=== PATIENT | male | born 1960 | race Two or more races ===

== ENCOUNTER 2019-07-25 17:21 | Emergency (ER) | payer OTHER ==
[~2019-07-25] VITALS: Ht 180.3 cm; Wt 95.3 kg
== END 2019-07-25 19:31 | disposition home or self-care (01) ==
LOC: ER 17:21
DX: K08.89 Other specified disorders of teeth and supporting structures (principal)

== ENCOUNTER 2021-11-03 16:19 | Emergency (ER) | payer OTHER ==
[~2021-11-03] VITALS: Ht 180.3 cm; Wt 88.5 kg
[2021-11-03] MEDS ORDERED: AMOX-CLAV 875-1 EAC1 PO (17:09)
== END 2021-11-03 17:37 | disposition home or self-care (01) ==
LOC: ER 16:19
DX: K04.7 Periapical abscess without sinus (principal); K08.89 Other specified disorders of teeth and supporting structures

== ENCOUNTER → 2024-07-12 07:45 | Outpatient (CLI) | payer OTHER ==
[~2024-07-12 07:45] MED LIST: AMOX-CLAV 875-1 EAC1 PO
[2024-07-12 09:00] LABS: BASO % 0.2 % (0.1-1.2); EOS # 0.11 (0.04-0.54); HEMATOCRIT 44.5 % (40.1-51.0); HEMOGLOBIN 15.1 g/dL (13.7-17.5); LYMPH % 35.2 % (19.3-53.1); MEAN CORPUSCULAR HEMOGLOBIN 27.8 pg (25.6-32.2); MONO # 0.57 (0.24-0.82); MONO % 10.6 % (4.7-12.5); NEUT # 2.79 (1.56-6.13); NEUT % 51.6 % (34.0-71.1); PLATELET COUNT 223 K/uL (163-369); RED BLOOD COUNT 5.44 M/uL (4.63-6.08); RED CELL DISTRIBUTION WIDTH 13.6 % (11.6-14.4)
[2024-07-12 09:22] LABS: PH,URINE 6.5 (5.0-8.0); URINE APPEARANCE Clear; URINE BILIRRUBIN Negative (NEGATIVE); URINE BLOOD Small; URINE COLOR Yellow; URINE GLUCOSE Negative (NEGATIVE); URINE KETONE Negative (NEGATIVE); URINE LEUKOCYTE Negative; URINE NITRATE Negative; URINE PROTEIN Negative (NEGATIVE); URINE UROBILINOGEN 0.2 E.U./dl
[2024-07-12 09:24] LABS: URINE EPITHELIAL CELLS 1.7 uL (0.0-38.8); URINE RBC 25.1 uL (0.0-20.8)
[2024-07-12 09:27] LABS: URINE BACTERIA 1.2 uL (0.0-1933); URINE WBC 0.3 uL (0.0-23.2)
[2024-07-12 09:40] LABS: ALBUMIN 3.8 gm/dL (3.4-5.0); BILIRUBIN TOTAL 0.53 mg/dL (0.3-1.2); CALCIUM 9.3 mg/dL (8.5-10.1); CHOL HDL RATIO 4.6 (0-5.0); CREATININE SERUM 0.9 mg/dL (0.70-1.30); GFR 84.95; GLOBULINA 4.2 G/DL (2.4-3.5); POTASSIUM 4.54 mEq/L (3.5-5.1); PROSTATIC SPECIFIC ANTIGEN 0.668 NG/ML (0.010-4.00)
[2024-07-15 21:12] LABS: chla t Negative (Negative); neiss Negative (Negative)
== END | disposition home or self-care (01) ==
LOC: LAB 07:45
DX: E78.2 Mixed hyperlipidemia (principal); R73.01 Impaired fasting glucose; Z11.3 Encounter for screening for infections with a predominantly sexual mode of transmission; Z11.4 Encounter for screening for human immunodeficiency virus [HIV]; N40.0 Benign prostatic hyperplasia without lower urinary tract symptoms

== ENCOUNTER 2024-08-16 07:34 | Outpatient (CLI) | payer OTHER ==
[2024-08-16 08:55] LABS: URINE APPEARANCE Clear; URINE BILIRRUBIN Negative (NEGATIVE); URINE BLOOD Small; URINE COLOR Yellow; URINE GLUCOSE Negative (NEGATIVE); URINE KETONE Negative (NEGATIVE); URINE LEUKOCYTE Negative; URINE NITRATE Negative; URINE PROTEIN Negative (NEGATIVE); URINE UROBILINOGEN 0.2 E.U./dl
[2024-08-16 09:00] LABS: URINE BACTERIA 4.7 uL (0.0-1933); URINE EPITHELIAL CELLS 1.6 uL (0.0-38.8); URINE RBC 24.0 uL (0.0-20.8)
[2024-08-16 09:07] LABS: URINE CAST 0.14 uL (0.0-1.40); URINE WBC 0.7 uL (0.0-23.2)
[2024-08-16 09:51] LABS: BUN CREA RATIO 9.0 (7.0-25.0); CREATININE SERUM 0.88 mg/dL (0.70-1.30); GFR 87.18; GLUCOSE FASTING 92.0 mg/dL (65-100); OSMOLALITY SERUM 279.0 MOSM/KG (275-295); PROSTATIC SPECIFIC ANTIGEN 0.756 NG/ML (0.010-4.00)
== END 2024-08-16 08:53 | disposition home or self-care (01) ==
LOC: LAB 07:34
PROVIDERS: ATTEND Urology
DX: Z12.5 Encounter for screening for malignant neoplasm of prostate (principal); Z80.42 Family history of malignant neoplasm of prostate; N40.0 Benign prostatic hyperplasia without lower urinary tract symptoms

== ENCOUNTER 2024-09-01 07:39 | Outpatient (CLI) | payer OTHER | END 2024-09-01 07:42 | disposition home or self-care (01) | LOC: SONOGRAMA 07:39 | PROVIDERS: ATTEND Urology | DX: R31.21 Asymptomatic microscopic hematuria (principal) ==

== ENCOUNTER 2024-09-20 07:11 | Outpatient (CLI) | payer OTHER ==
[2024-09-20 07:52] LABS: URINE APPEARANCE Clear; URINE BILIRRUBIN Negative (NEGATIVE); URINE BLOOD Trace; URINE COLOR Yellow; URINE GLUCOSE Negative (NEGATIVE); URINE KETONE Negative (NEGATIVE); URINE LEUKOCYTE Negative; URINE NITRATE Negative; URINE PROTEIN Negative (NEGATIVE); URINE UROBILINOGEN 0.2 E.U./dl
[2024-09-20 07:55] LABS: URINE RBC 11.1 uL (0.0-20.8)
[2024-09-20 08:01] LABS: URINE BACTERIA 0 uL (0.0-1933); URINE CAST 0.00 uL (0.0-1.40); URINE EPITHELIAL CELLS 0.7 uL (0.0-38.8); URINE WBC 0.4 uL (0.0-23.2)
== END 2024-09-20 07:14 | disposition home or self-care (01) ==
LOC: LAB 07:11
PROVIDERS: ATTEND Urology
DX: R31.21 Asymptomatic microscopic hematuria (principal)

== ENCOUNTER → 2024-10-25 07:12 | Outpatient (CLI) | payer OTHER ==
[2024-10-25 08:47] LABS: ALT/SGPT 23.0 U/L (12-78); AST/SGOT 18.0 U/L (15-37); CHOL HDL RATIO 4.6 (0-5.0); HDL 42.0 mg/dl (40-60); LDL 117.0 mg/dl (0-130); PHOSPHOKINASE CREATININE 75.0 U/L (39-308); VLDL 34.0 (0-39)
== END | disposition home or self-care (01) ==
LOC: LAB 07:12
DX: I10 Essential (primary) hypertension (principal)